=== PATIENT | female | born 1950 | race Caucasian/White ===

== ENCOUNTER 2022-10-22 16:21 | Inpatient (IN) | payer MEDICARE, OTHER ==
[2022-10-22 17:22] LABS: Hemoglobin 10.3 g/dL (12.0-15.5); Mean Corpuscular HGB CONC 32.7 g/dL (32.0-36.0); Mean Corpuscular Hemoglobin 26.8 pg (27.0-33.0); Mean Platelet Volume 10.1 fl (7.4-10.4); Platelet Count 687 10x3/uL (150-450); RBC Distribution Width 14.9 % (11.5-14.5); Red Blood Cell (RBC) Count 3.84 10x6/uL (3.90-5.03)
[2022-10-22 17:25] LABS: MDiff Complete? YES
[2022-10-22 17:36] LABS: ALT (SGPT) 14 U/L (8-55); AST (SGOT) 20 U/L (5-34); Alkaline Phosphatase 141 U/L (40-110); Anion Gap 22 mmol/L (10-20); BUN (Urea Nitrogen) 45 mg/dL (9.8-20.1); Bilirubin, Total 0.8 mg/dL (0.2-1.2); Calc. Creatinine Clearance 0 mL/min (70-130); Calcium 9.9 mg/dL (7.8-10.44); Carbon Dioxide 14 mmol/L (23-31); Chloride 104 mmol/L (98-107); Estimated GFR 25; Globulin 4.2 g/dL (2.4-3.5); Glucose 107 mg/dL (83-110); Potassium 4.2 mmol/L (3.5-5.1); Protein, Total 7.2 g/dL (5.8-8.1); Sodium 136 mmol/L (136-145)
[2022-10-22] MEDS ORDERED: Ondansetron PF 4 MG/2 ML Vial ONE (18:14)
[2022-10-22] MEDS ORDERED: Piperacillin/Tazobactam 3.375 GM VIAL ONE (18:14)
[2022-10-22 18:40] LABS: Band 48 % (5-11); Lymphocytes 5 % (21-51); Monocytes 7 % (0-10); Neutrophil 40 % (42-75)
[2022-10-22 18:42] LABS: Anisocytosis SLIGHT = 6-15 cells (100X) (0-5/hpf); Large Platelets SLIGHT (None Seen); Microcytosis SLIGHT = 6-15 cells (100X) (0-5/hpf); Platelet Adequacy Comment Appears Increased
[2022-10-22 19:50] LABS: Bilirubin 3+ (Negative); Blood, Urine 10 (Negative); Clarity Slightly Cloudy (Clear); Glucose, Urine (Dipstick) Normal (Negative); Ketone, Urine 5 mg/dL (Negative); Leukocyte 25 (Negative); Nitrite Positive (Negative); Protein, Urine (Dipstick) 30 mg/dl (Neg-Trace)
[2022-10-22 20:31] LABS: Lactic Acid 1.3 mmol/L (0.5-2.2)
[2022-10-22 20:50] LABS: Bacteria/HPF 1+ HPF (None Seen); CAUTI Indications for Culture Alt mental st,lethar; RBC/HPF 0-3 HPF (0-3); WBC/HPF 0-3 HPF (0-3)
[2022-10-22 20:52] LABS: Urine Culture Reflex No No
[2022-10-22] MEDS ORDERED: Acetaminophen 650 MG Suppository PR PRN (20:53)
[2022-10-22] MEDS ORDERED: Ondansetron PF 4 MG/2 ML Vial IVP PRN (20:53)
[2022-10-22] MEDS: Sodium Chloride 0.9% 1,000 ML IV SCH (22:30)
[2022-10-22] MEDS: Acetaminophen 325 MG TAB PO PRN (22:57)
[2022-10-23] MEDS: Piperacillin/Tazobactam 3.375 GM in Sodium Chloride 0.9% 100 ML IVPB SCH ×3 (01:15→17:57)
[2022-10-23 04:08] LABS: Hemoglobin 9.1 g/dL (12.0-15.5); Mean Corpuscular HGB CONC 31.8 g/dL (32.0-36.0); Mean Corpuscular Hemoglobin 26.7 pg (27.0-33.0); Mean Corpuscular Volume 83.9 fl (81.6-98.3); Mean Platelet Volume 9.9 fl (7.4-10.4); Platelet Count 598 10x3/uL (150-450); RBC Distribution Width 14.9 % (11.5-14.5); Red Blood Cell (RBC) Count 3.41 10x6/uL (3.90-5.03)
[2022-10-23 04:09] LABS: MDiff Complete? YES
[2022-10-23 04:13] LABS: Anion Gap 17 mmol/L (10-20); BUN (Urea Nitrogen) 44 mg/dL (9.8-20.1); Calc. Creatinine Clearance 38 mL/min (70-130); Calcium 9.2 mg/dL (7.8-10.44); Carbon Dioxide 21 mmol/L (23-31); Chloride 107 mmol/L (98-107); Estimated GFR 29; Glucose 100 mg/dL (83-110); Potassium 3.9 mmol/L (3.5-5.1); Sodium 141 mmol/L (136-145)
[2022-10-23 05:48] LABS: Band 21 % (5-11); Eosinophils 2 % (0-10); Lymphocytes 7 % (21-51); Monocytes 7 % (0-10); Neutrophil 63 % (42-75)
[2022-10-23 05:53] LABS: Hypochromia SLIGHT = 6-15 cells (100X) (0-5/hpf); Ovalocytes SLIGHT = 2-5 cells (100X) (0-1/hpf); Platelet Adequacy Comment Appears Adequate; Schistocytes SLIGHT = 2-5 cells (100X) (0-1/hpf)
[2022-10-23] MEDS: Sodium Chloride 0.9% 1,000 ML IV SCH ×2 (06:34→15:11)
[2022-10-23 12:43] LABS: Magnesium 2.1 mg/dL (1.6-2.6); Phosphorus 3.9 mg/dL (2.3-4.7)
[2022-10-23] MEDS: Donepezil HCl 5 MG TAB PO SCH (17:57)
[2022-10-23] MEDS: Lactated Ringer's 1,000 ML IV SCH (17:57)
[2022-10-23] MEDS: Acetaminophen 325 MG TAB PO PRN (18:08)
[2022-10-23] MEDS ORDERED: VERAPAMIL HCL 300 MG PO SCH (21:00)
[2022-10-23] MEDS ORDERED: QUEtiapine 25 MG TAB PO SCH (21:00)
[2022-10-23] MEDS: Montelukast Sodium 10 mg Tablet PO SCH (21:26)
[2022-10-24] MEDS: Piperacillin/Tazobactam 3.375 GM in Sodium Chloride 0.9% 100 ML IVPB SCH ×3 (02:00→17:16)
[2022-10-24] MEDS: Lactated Ringer's 1,000 ML IV SCH ×3 (03:00→18:38)
[2022-10-24 05:49] LABS: ALT (SGPT) 9 U/L (8-55); AST (SGOT) 16 U/L (5-34); Albumin 2.3 g/dL (3.4-4.8); Alkaline Phosphatase 141 U/L (40-110); Anion Gap 15 mmol/L (10-20); BUN (Urea Nitrogen) 26 mg/dL (9.8-20.1); Bilirubin, Total 0.5 mg/dL (0.2-1.2); Calc. Creatinine Clearance 67 mL/min (70-130); Calcium 8.8 mg/dL (7.8-10.44); Carbon Dioxide 20 mmol/L (23-31); Chloride 112 mmol/L (98-107); Estimated GFR 56; Globulin 3.3 g/dL (2.4-3.5); Glucose 81 mg/dL (83-110); Magnesium 2.3 mg/dL (1.6-2.6); Phosphorus 2.8 mg/dL (2.3-4.7); Potassium 3.2 mmol/L (3.5-5.1); Protein, Total 5.6 g/dL (5.8-8.1); Sodium 144 mmol/L (136-145)
[2022-10-24 05:57] LABS: Hemoglobin 8.5 g/dL (12.0-15.5); MDiff Complete? YES; Mean Corpuscular HGB CONC 31.4 g/dL (32.0-36.0); Mean Corpuscular Hemoglobin 26.6 pg (27.0-33.0); Mean Platelet Volume 9.9 fl (7.4-10.4); Platelet Count 572 10x3/uL (150-450); RBC Distribution Width 15.1 % (11.5-14.5); Red Blood Cell (RBC) Count 3.19 10x6/uL (3.90-5.03); White Blood Cell (WBC) Count 18.1 10x3/uL (3.5-10.5)
[2022-10-24] MEDS: Mometasone/Formoterol 200/5 60 PUFF INH SCH ×2 (08:00→20:18)
[2022-10-24 08:37] LABS: Band 4 % (5-11); Eosinophils 2 % (0-10); Lymphocytes 4 % (21-51); Monocytes 1 % (0-10); Neutrophil 89 % (42-75)
[2022-10-24 08:38] LABS: Platelet Adequacy Comment Appears Increased; RBC Morph Comment Within Normal Limits
[2022-10-24] MEDS: Escitalopram Oxalate 10 mg Tablet PO SCH (09:27)
[2022-10-24] MEDS: Aspirin Chewable 81 MG TAB PO SCH (09:27)
[2022-10-24] MEDS ORDERED: QUEtiapine 100 MG TAB PO SCH (13:00)
[2022-10-24] MEDS ORDERED: Dextrose 5% in Water 1,000 ML IV PRN (16:27)
[2022-10-24] MEDS ORDERED: Glucagon 1 MG/ML KIT IM PRN (16:27)
[2022-10-24] MEDS ORDERED: Dextrose 50% Abboject 50 ML SYRINGE SLOW IVP PRN (16:27)
[2022-10-24] MEDS: Donepezil HCl 5 MG TAB PO SCH (17:16)
[2022-10-24] MEDS ORDERED: GoLYTELY 4,000 ml Bottle PO SCH (19:45)
[2022-10-24] MEDS ORDERED: Doxepin HCl 10 MG CAP PO SCH (20:00)
[2022-10-24] MEDS: Montelukast Sodium 10 mg Tablet PO SCH (20:43)
[2022-10-24] MEDS: Doxepin HCl 10 MG CAP PO SCH (20:43)
[2022-10-25] MEDS: Piperacillin/Tazobactam 3.375 GM in Sodium Chloride 0.9% 100 ML IVPB SCH ×3 (02:24→18:52)
[2022-10-25] MEDS: Lactated Ringer's 1,000 ML IV SCH ×2 (02:25→18:54)
[2022-10-25 06:04] LABS: Albumin 2.3 g/dL (3.4-4.8); Anion Gap 10 mmol/L (10-20); BUN (Urea Nitrogen) 15 mg/dL (9.8-20.1); Bilirubin, Total 0.4 mg/dL (0.2-1.2); Calc. Creatinine Clearance 88 mL/min (70-130); Calcium 8.5 mg/dL (7.6-10.4); Carbon Dioxide 19 mmol/L (23-31); Chloride 112 mmol/L (98-107); Estimated GFR 78; Globulin 3.2 g/dL (2.4-3.5); Glucose 88 mg/dL (83-110); Potassium 2.7 mmol/L (3.5-5.1); Protein, Total 5.5 g/dL (5.8-8.1); Sodium 145 mmol/L (136-145)
[2022-10-25 06:05] LABS: ALT (SGPT) Less than 10 U/L (8-55); AST (SGOT) 10 U/L (5-34); Alkaline Phosphatase 127 U/L (40-110); Iron 19 ug/dL (50-170); Iron Binding Capacity, Total 114 mcg/dL (265-497)
[2022-10-25 06:13] LABS: Hemoglobin 8.6 g/dL (12.0-15.5); Red Blood Cell (RBC) Count 3.23 10x6/uL (3.90-5.03); White Blood Cell (WBC) Count 15.3 10x3/uL (3.5-10.5)
[2022-10-25 06:14] LABS: %Basophils 0.8 % (0.0-2.0); %Eosinophils 1.6 % (0.0-6.0); %Lymphocytes 12.8 % (18.0-47.0); %Monocytes 8.5 % (0.0-10.0); %Neutrophils 74.1 % (40.0-75.0); Mean Corpuscular HGB CONC 30.8 g/dL (32.0-36.0); Mean Corpuscular Hemoglobin 26.6 pg (27.0-33.0); Mean Corpuscular Volume 86.4 fl (81.6-98.3); Mean Platelet Volume 9.8 fl (7.4-10.4); Platelet Count 540 10x3/uL (130-400); RBC Distribution Width 15.2 % (11.5-14.5)
[2022-10-25 06:19] LABS: #Eosinphils 0.2 10x3/uL (0.0-0.5); #Monocytes 1.3 10x3/uL (0.0-1.1); #Neutrophils 11.3 10x3/uL (1.5-8.4)
[2022-10-25 06:20] LABS: #Basophils 0.1 10x3/uL (0.0-0.2)
[2022-10-25] MEDS ORDERED: QUEtiapine 100 MG TAB PO SCH (09:00)
[2022-10-25] MEDS: Escitalopram Oxalate 10 mg Tablet PO SCH (10:24)
[2022-10-25] MEDS: Aspirin Chewable 81 MG TAB PO SCH (10:24)
[2022-10-25] MEDS ORDERED: GoLYTELY 4,000 ml Bottle PO SCH (11:00)
[2022-10-25] MEDS: Potassium Chloride 20 MEQ in Premix Bag 1 BAG IVPB SCH ×2 (11:30→13:00)
[2022-10-25] MEDS ORDERED: Potassium Chloride 20 MEQ in Premix Bag 1 BAG IVPB SCH (13:15)
[2022-10-25] MEDS ORDERED: Electrolyte Replacement Protocol 1 EACH FS SCH (13:15)
[2022-10-25 15:08] LABS: Potassium 2.9 mmol/L (3.5-5.1)
[2022-10-25] MEDS ORDERED: Lidocaine 4% PF 5 ML AMP ONE (15:26)
[2022-10-25] MEDS ORDERED: Potassium Chloride 20 MEQ TAB PO SCH ×2 (15:45→20:00)
[2022-10-25] MEDS ORDERED: PROPOFOL 20 ML ONE (16:02)
[2022-10-25] MEDS: Donepezil HCl 5 MG TAB PO SCH (18:52)
[2022-10-25 19:44] LABS: Potassium 2.7 mmol/L (3.5-5.1)
[2022-10-25] MEDS: Mometasone/Formoterol 200/5 60 PUFF INH SCH ×2 (20:09→20:11)
[2022-10-25] MEDS: Montelukast Sodium 10 mg Tablet PO SCH (21:26)
[2022-10-25] MEDS: Doxepin HCl 10 MG CAP PO SCH (21:26)
[2022-10-26] MEDS ORDERED: Potassium Chloride 20 MEQ TAB PO SCH ×2 (01:00→08:00)
[2022-10-26] MEDS: Piperacillin/Tazobactam 3.375 GM in Sodium Chloride 0.9% 100 ML IVPB SCH ×3 (01:41→17:11)
[2022-10-26 05:06] LABS: #Basophils 0.1 10x3/uL (0.0-0.2); #Eosinphils 0.2 10x3/uL (0.0-0.5); #Monocytes 1.4 10x3/uL (0.0-1.1); #Neutrophils 12.1 10x3/uL (1.5-8.4); %Basophils 0.6 % (0.0-2.0); %Eosinophils 1.3 % (0.0-6.0); %Lymphocytes 13.4 % (18.0-47.0); %Monocytes 8.6 % (0.0-10.0); %Neutrophils 73.9 % (40.0-75.0); Hemoglobin 9.2 g/dL (12.0-15.5); Mean Corpuscular HGB CONC 31.1 g/dL (32.0-36.0); Mean Corpuscular Hemoglobin 26.4 pg (27.0-33.0); Mean Corpuscular Volume 85.1 fl (81.6-98.3); Mean Platelet Volume 9.5 fl (7.4-10.4); Platelet Count 541 10x3/uL (150-450); RBC Distribution Width 15.2 % (11.5-14.5); Red Blood Cell (RBC) Count 3.48 10x6/uL (3.90-5.03); White Blood Cell (WBC) Count 16.4 10x3/uL (3.5-10.5)
[2022-10-26 05:18] LABS: ALT (SGPT) 8 U/L (8-55); AST (SGOT) 11 U/L (5-34); Albumin 2.4 g/dL (3.4-4.8); Alkaline Phosphatase 109 U/L (40-110); Anion Gap 14 mmol/L (10-20); BUN (Urea Nitrogen) 8 mg/dL (9.8-20.1); Bilirubin, Total 0.3 mg/dL (0.2-1.2); Calc. Creatinine Clearance 97 mL/min (70-130); Calcium 8.7 mg/dL (7.8-10.44); Carbon Dioxide 22 mmol/L (23-31); Chloride 113 mmol/L (98-107); Estimated GFR 88; Globulin 3.4 g/dL (2.4-3.5); Glucose 92 mg/dL (83-110); Magnesium 2.3 mg/dL (1.6-2.6); Potassium 3.3 mmol/L (3.5-5.1); Protein, Total 5.8 g/dL (5.8-8.1); Sodium 146 mmol/L (136-145)
[2022-10-26 05:19] LABS: Phosphorus 2.1 mg/dL (2.3-4.7)
[2022-10-26] MEDS: Mometasone/Formoterol 200/5 60 PUFF INH SCH ×4 (06:03→20:15)
[2022-10-26] MEDS: Escitalopram Oxalate 10 mg Tablet PO SCH (10:39)
[2022-10-26] MEDS ORDERED: fentaNYL 50 mcg/mL 1 mL Vial ONE ×2 (13:26→16:24)
[2022-10-26] MEDS ORDERED: Rocuronium Bromide 10 MG/ML (10ML VIAL) ONE (13:26)
[2022-10-26] MEDS ORDERED: PROPOFOL 20 ML ONE (13:26)
[2022-10-26] MEDS ORDERED: Dexamethasone 20 MG/5 ML VIAL ONE (13:26)
[2022-10-26] MEDS ORDERED: Midazolam HCl 2 mg/2 ml Vial ONE (13:26)
[2022-10-26] MEDS: Aspirin Chewable 81 MG TAB PO SCH (14:49)
[2022-10-26] MEDS ORDERED: SUGAMMADEX SODIUM 200 MG/2 ML VIAL ONE (15:12)
[2022-10-26] MEDS ORDERED: Morphine 4 MG/ML VIAL SLOW IVP PRN (17:26)
[2022-10-26] MEDS: Donepezil HCl 5 MG TAB PO SCH (18:26)
[2022-10-26] MEDS: Doxepin HCl 10 MG CAP PO SCH (21:01)
[2022-10-26] MEDS: Montelukast Sodium 10 mg Tablet PO SCH (21:01)
[2022-10-27] MEDS: Acetaminophen 325 MG TAB PO PRN (00:43)
[2022-10-27] MEDS: Piperacillin/Tazobactam 3.375 GM in Sodium Chloride 0.9% 100 ML IVPB SCH ×3 (03:28→18:21)
[2022-10-27 04:28] LABS: Hemoglobin 9.2 g/dL (12.0-15.5); Mean Corpuscular HGB CONC 30.8 g/dL (32.0-36.0); Mean Corpuscular Hemoglobin 26.1 pg (27.0-33.0); Mean Corpuscular Volume 84.9 fl (81.6-98.3); Mean Platelet Volume 9.6 fl (7.4-10.4); Platelet Count 555 10x3/uL (150-450); RBC Distribution Width 15.2 % (11.5-14.5); Red Blood Cell (RBC) Count 3.52 10x6/uL (3.90-5.03); White Blood Cell (WBC) Count 21.1 10x3/uL (3.5-10.5)
[2022-10-27 04:35] LABS: MDiff Complete? YES
[2022-10-27 04:40] LABS: ALT (SGPT) 9 U/L (8-55); AST (SGOT) 10 U/L (5-34); Albumin 2.5 g/dL (3.4-4.8); Alkaline Phosphatase 83 U/L (40-110); Anion Gap 16 mmol/L (10-20); BUN (Urea Nitrogen) 8 mg/dL (9.8-20.1); Bilirubin, Total 0.3 mg/dL (0.2-1.2); Calc. Creatinine Clearance 103 mL/min (70-130); Calcium 8.8 mg/dL (7.8-10.44); Carbon Dioxide 19 mmol/L (23-31); Chloride 116 mmol/L (98-107); Estimated GFR 90; Globulin 3.4 g/dL (2.4-3.5); Glucose 153 mg/dL (83-110); Potassium 3.7 mmol/L (3.5-5.1); Protein, Total 5.9 g/dL (5.8-8.1); Sodium 147 mmol/L (136-145)
[2022-10-27 05:18] LABS: Band 16 % (5-11); Lymphocytes 9 % (21-51); Monocytes 5 % (0-10); Neutrophil 70 % (42-75)
[2022-10-27 05:19] LABS: Platelet Adequacy Comment Appears Increased; RBC Morph Comment Within Normal Limits
[2022-10-27 06:09] VITALS: BMI 31.6
[2022-10-27] MEDS ORDERED: Lactated Ringer's 1,000 ML IV SCH (09:30)
[2022-10-27] MEDS: Aspirin Chewable 81 MG TAB PO SCH (10:58)
[2022-10-27] MEDS: Escitalopram Oxalate 10 mg Tablet PO SCH (10:58)
[2022-10-27] MEDS: Mometasone/Formoterol 200/5 60 PUFF INH SCH ×2 (11:00→19:27)
[2022-10-27] MEDS: 1/2 NS w/KCL 20 mEq 1,000 ML IV SCH ×2 (13:02→23:10)
[2022-10-27] MEDS: Morphine 2 MG/ML VIAL SLOW IVP PRN (13:50)
[2022-10-27] MEDS: Ondansetron ODT 4 MG TAB PO PRN (14:01)
[2022-10-27] MEDS ORDERED: Ibuprofen 400 MG TAB PO PRN (15:04)
[2022-10-27] MEDS: Donepezil HCl 5 MG TAB PO SCH (18:21)
[2022-10-27] MEDS: Doxepin HCl 10 MG CAP PO SCH (20:36)
[2022-10-27] MEDS: Montelukast Sodium 10 mg Tablet PO SCH (20:36)
[2022-10-28] MEDS: Piperacillin/Tazobactam 3.375 GM in Sodium Chloride 0.9% 100 ML IVPB SCH ×3 (01:43→18:08)
[2022-10-28 05:23] LABS: ALT (SGPT) 7 U/L (8-55); AST (SGOT) 14 U/L (5-34); Albumin 2.2 g/dL (3.4-4.8); Alkaline Phosphatase 67 U/L (40-110); Anion Gap 14 mmol/L (10-20); BUN (Urea Nitrogen) 8 mg/dL (9.8-20.1); Bilirubin, Total 0.2 mg/dL (0.2-1.2); Calc. Creatinine Clearance 110 mL/min (70-130); Calcium 8.5 mg/dL (7.8-10.44); Carbon Dioxide 19 mmol/L (23-31); Chloride 116 mmol/L (98-107); Estimated GFR 93; Globulin 2.8 g/dL (2.4-3.5); Glucose 95 mg/dL (83-110); Potassium 4.1 mmol/L (3.5-5.1); Sodium 145 mmol/L (136-145)
[2022-10-28 05:35] LABS: Hemoglobin 7.9 g/dL (12.0-15.5); Mean Corpuscular HGB CONC 30.7 g/dL (32.0-36.0); Mean Corpuscular Hemoglobin 26.2 pg (27.0-33.0); Mean Corpuscular Volume 85.1 fl (81.6-98.3); Mean Platelet Volume 9.9 fl (7.4-10.4); Platelet Count 387 10x3/uL (150-450); RBC Distribution Width 15.3 % (11.5-14.5); Red Blood Cell (RBC) Count 3.02 10x6/uL (3.90-5.03); White Blood Cell (WBC) Count 17.6 10x3/uL (3.5-10.5)
[2022-10-28 05:38] LABS: MDiff Complete? YES
[2022-10-28 06:05] LABS: Band 20 % (5-11); Lymphocytes 6 % (21-51); Monocytes 4 % (0-10); Neutrophil 70 % (42-75)
[2022-10-28] MEDS: 1/2 NS w/KCL 20 mEq 1,000 ML IV SCH (08:00)
[2022-10-28] MEDS: Aspirin Chewable 81 MG TAB PO SCH (08:01)
[2022-10-28] MEDS: Escitalopram Oxalate 20 mg Tablet PO SCH (08:01)
[2022-10-28] MEDS: Acetaminophen 325 MG TAB PO PRN (08:02)
[2022-10-28] MEDS: Mometasone/Formoterol 200/5 60 PUFF INH SCH ×2 (09:20→19:35)
[2022-10-28] MEDS: Dextrose 5% in Water 1,000 ML IV SCH ×2 (11:22→23:35)
[2022-10-28] MEDS: Morphine 2 MG/ML VIAL SLOW IVP PRN (16:16)
[2022-10-28] MEDS: Donepezil HCl 5 MG TAB PO SCH (16:17)
[2022-10-28] MEDS: Montelukast Sodium 10 mg Tablet PO SCH (21:26)
[2022-10-28] MEDS: Doxepin HCl 10 MG CAP PO SCH (21:26)
[2022-10-29] MEDS: Piperacillin/Tazobactam 3.375 GM in Sodium Chloride 0.9% 100 ML IVPB SCH ×3 (02:55→17:14)
[2022-10-29 05:25] LABS: ALT (SGPT) 12 U/L (8-55); AST (SGOT) 18 U/L (5-34); Alkaline Phosphatase 57 U/L (40-110); Anion Gap 9 mmol/L (10-20); BUN (Urea Nitrogen) 6 mg/dL (9.8-20.1); Bilirubin, Total 0.2 mg/dL (0.2-1.2); Calc. Creatinine Clearance 117 mL/min (70-130); Calcium 8.1 mg/dL (7.8-10.44); Carbon Dioxide 21 mmol/L (23-31); Chloride 112 mmol/L (98-107); Estimated GFR 94; Globulin 2.7 g/dL (2.4-3.5); Glucose 112 mg/dL (83-110); Potassium 3.4 mmol/L (3.5-5.1); Protein, Total 4.7 g/dL (5.8-8.1); Sodium 139 mmol/L (136-145)
[2022-10-29 05:26] LABS: #Basophils 0.1 10x3/uL (0.0-0.2); #Eosinphils 0.7 10x3/uL (0.0-0.5); #Monocytes 0.8 10x3/uL (0.0-1.1); #Neutrophils 10.8 10x3/uL (1.5-8.4); %Basophils 0.6 % (0.0-2.0); %Eosinophils 4.2 % (0.0-6.0); %Lymphocytes 17.9 % (18.0-47.0); %Monocytes 5.3 % (0.0-10.0); %Neutrophils 68.8 % (40.0-75.0); Hemoglobin 7.4 g/dL (12.0-15.5); Mean Corpuscular HGB CONC 30.7 g/dL (32.0-36.0); Mean Corpuscular Hemoglobin 26.3 pg (27.0-33.0); Mean Corpuscular Volume 85.8 fl (81.6-98.3); Mean Platelet Volume 10.3 fl (7.4-10.4); Platelet Count 329 10x3/uL (150-450); RBC Distribution Width 15.5 % (11.5-14.5); Red Blood Cell (RBC) Count 2.81 10x6/uL (3.90-5.03); White Blood Cell (WBC) Count 15.7 10x3/uL (3.5-10.5)
[2022-10-29] MEDS ORDERED: Potassium Chloride 20 MEQ TAB PO SCH (08:00)
[2022-10-29] MEDS: Mometasone/Formoterol 200/5 60 PUFF INH SCH ×2 (09:00→20:08)
[2022-10-29] MEDS: Dextrose 5% in Water 1,000 ML IV SCH (10:02)
[2022-10-29] MEDS: Acetaminophen 325 MG TAB PO PRN (10:07)
[2022-10-29] MEDS: Aspirin Chewable 81 MG TAB PO SCH (10:08)
[2022-10-29] MEDS: Escitalopram Oxalate 20 mg Tablet PO SCH (10:25)
[2022-10-29] MEDS: Ondansetron ODT 4 MG TAB PO PRN (17:19)
[2022-10-29] MEDS: Morphine 2 MG/ML VIAL SLOW IVP PRN (17:19)
[2022-10-29] MEDS: Donepezil HCl 5 MG TAB PO SCH (17:19)
[2022-10-29] MEDS: Doxepin HCl 10 MG CAP PO SCH (21:09)
[2022-10-29] MEDS: Montelukast Sodium 10 mg Tablet PO SCH (21:09)
[2022-10-30] MEDS: Piperacillin/Tazobactam 3.375 GM in Sodium Chloride 0.9% 100 ML IVPB SCH ×2 (02:10→10:11)
[2022-10-30] MEDS: Dextrose 5% in Water 1,000 ML IV SCH (02:11)
[2022-10-30 05:37] LABS: #Basophils 0.1 10x3/uL (0.0-0.2); #Eosinphils 0.5 10x3/uL (0.0-0.5); #Monocytes 0.8 10x3/uL (0.0-1.1); #Neutrophils 12.5 10x3/uL (1.5-8.4); %Basophils 0.4 % (0.0-2.0); %Eosinophils 2.7 % (0.0-6.0); %Lymphocytes 14.4 % (18.0-47.0); %Neutrophils 75.4 % (40.0-75.0); Hemoglobin 8.3 g/dL (12.0-15.5); Mean Corpuscular HGB CONC 30.5 g/dL (32.0-36.0); Mean Corpuscular Hemoglobin 26.1 pg (27.0-33.0); Mean Corpuscular Volume 85.5 fl (81.6-98.3); Mean Platelet Volume 9.9 fl (7.4-10.4); Platelet Count 405 10x3/uL (150-450); RBC Distribution Width 15.4 % (11.5-14.5); Red Blood Cell (RBC) Count 3.18 10x6/uL (3.90-5.03); White Blood Cell (WBC) Count 16.5 10x3/uL (3.5-10.5)
[2022-10-30 05:42] LABS: ALT (SGPT) 13 U/L (8-55); AST (SGOT) 21 U/L (5-34); Albumin 2.3 g/dL (3.4-4.8); Alkaline Phosphatase 65 U/L (40-110); Anion Gap 13 mmol/L (10-20); BUN (Urea Nitrogen) 5 mg/dL (9.8-20.1); Bilirubin, Total 0.4 mg/dL (0.2-1.2); Calc. Creatinine Clearance 108 mL/min (70-130); Calcium 8.3 mg/dL (7.8-10.44); Carbon Dioxide 19 mmol/L (23-31); Chloride 110 mmol/L (98-107); Estimated GFR 92; Globulin 2.9 g/dL (2.4-3.5); Glucose 89 mg/dL (83-110); Potassium 3.3 mmol/L (3.5-5.1); Protein, Total 5.2 g/dL (5.8-8.1); Sodium 139 mmol/L (136-145)
[2022-10-30] MEDS: Mometasone/Formoterol 200/5 60 PUFF INH SCH (07:05)
[2022-10-30] MEDS ORDERED: Potassium Chloride 20 MEQ TAB PO SCH (09:00)
[2022-10-30] MEDS: Escitalopram Oxalate 20 mg Tablet PO SCH (09:10)
[2022-10-30] MEDS: Aspirin Chewable 81 MG TAB PO SCH (09:10)
[2022-10-30 12:20] VITALS: BP 155/71
[2022-10-30 14:06] VITALS: TEMP 99.7
[2022-10-30 14:22] LABS: Potassium 3.5 mmol/L (3.5-5.1)
== END 2022-10-30 15:15 | disposition home or self-care (01) | DRG 853 ==
LOC: CSHERS 16:21 → CSHTELE 21:10
PROVIDERS: ADMIT Student in an Organized Health Care Education/Training Program; ATTEND Internal Medicine
PROC: 3E03329 Introduction of Other Anti-infective into Peripheral Vein, Percutaneous Approach (ICD-10-PCS; 2022-10-22)
PROC: 0DB78ZX Excision of Stomach, Pylorus, Via Natural or Artificial Opening Endoscopic, Diagnostic (ICD-10-PCS; 2022-10-25)
PROC: 0DBN8ZX Excision of Sigmoid Colon, Via Natural or Artificial Opening Endoscopic, Diagnostic (ICD-10-PCS; 2022-10-25)
PROC: 0DTN0ZZ Resection of Sigmoid Colon, Open Approach (ICD-10-PCS; principal; 2022-10-26)
PROC: 0D1E0Z4 Bypass Large Intestine to Cutaneous, Open Approach (ICD-10-PCS; 2022-10-26)
DX: A41.9 Sepsis, unspecified organism (principal); G93.41 Metabolic encephalopathy; K55.049 Acute infarction of large intestine, extent unspecified; K63.1 Perforation of intestine (nontraumatic); K65.1 Peritoneal abscess; C18.7 Malignant neoplasm of sigmoid colon; N17.9 Acute kidney failure, unspecified; D62 Acute posthemorrhagic anemia; N30.00 Acute cystitis without hematuria; R65.20 Severe sepsis without septic shock; J44.9 Chronic obstructive pulmonary disease, unspecified; G30.9 Alzheimer's disease, unspecified; F02.80 Dementia in other diseases classified elsewhere, unspecified severity, without behavioral disturbance, psychotic disturbance, mood disturbance, and anxiety; I10 Essential (primary) hypertension; R19.7 Diarrhea, unspecified; E86.0 Dehydration; Z96.651 Presence of right artificial knee joint; D69.6 Thrombocytopenia, unspecified; E87.6 Hypokalemia; K64.4 Residual hemorrhoidal skin tags; K64.8 Other hemorrhoids; K25.9 Gastric ulcer, unspecified as acute or chronic, without hemorrhage or perforation; K44.9 Diaphragmatic hernia without obstruction or gangrene; Z88.8 Allergy status to other drugs, medicaments and biological substances; Z79.899 Other long term (current) drug therapy; Z98.890 Other specified postprocedural states
CPT/HCPCS: 36415; 36416; 71250; 74176; 76536; 80048; 80053; 81001; 82378; 82550; 82728; 83540; 83550; 83605; 83735; 84100; 84145; 84443; 85025; 87040; 87086; 87149; 87324; 87449; 88305; 88309; 93005; 93010; 94664; 94760; 96374; 96375; 97139; A4649; C1713; C1776; J1100; J1650; J2250; J2272; J2405; J2543; J2704; J3010; J3480; J3490; J7050; J7070; J7120; Q0162